=== PATIENT | female | born 1995 | race African-American/Black ===

== ENCOUNTER 2016-03-29 10:24 | Emergency (ER) | payer SELFPAY ==
[~2016-03-29] VITALS: Ht 167.6 cm; Wt 67.1 kg
[~2016-03-29 10:24] MED LIST: CIPROFLOXACIN500 M2 ORAL; COLACE100 MG ORAL; IBUPROFEN800 MG ORAL; MIRALAX17 G2 ORAL; NKM; PHENAZOPYRIDIN200 MG ORAL
[2016-03-29 10:32] VITALS: BP 101/73
[2016-03-29 10:42] VITALS: BP 101/73
[2016-03-29] MEDS ORDERED: IBUPROFEN600 MG ORAL (10:45)
[2016-03-29] MEDS ORDERED: AUGMENTIN 875-1 EAC1 ORAL (10:45)
--- NOTE | 2016-03-29 10:51 | Emergency Room Report ---
History of Present Illness General Chief Complaint: Sore Throat Source: Patient Present Illness HPI Patient presents with complaints of sore throat Pain with swallowing Ongoing for the past 3-4 days Denies any fevers or chills denies any posterior neck pain or photophobia denies any chest pain or shortness of breath denies any vomiting or diarrhea Patient also has a sore voices Denies any rash Pain is 5/10 localized to the throat when swallowing Allergies: Coded Allergies: No Known Allergies (Unverified , 12/05/13) Patient History Past Medical History: see triage record Pertinent Family History: none Last Menstrual Period: 03/09/16 Now: No Reviewed Nursing Documentation: PMH: Agreed, PSxH: Agreed Nursing Documentation-PMH Past Medical History: No Stated History Review of Systems All Other Systems: negative except mentioned in HPI Physical Exam Vital Signs Date Time Temp Pulse Resp B/P Pulse Ox O2 Delivery O2 Flow Rate FiO2 03/29/16 10:32 98.1 67 14 101/73 98 Room Air Sp02 EP Interpretation: reviewed, normal General Appearance: well appearing, no apparent distress Head: normocephalic, atraumatic Eyes: bilateral eye EOMI, bilateral eye PERRL ENT: hearing grossly normal, TMs + canals normal, uvula midline, pharyngeal erythema - Bilaterally Neck: full range of motion, supple, no meningismus, no bony tend Respiratory: lungs clear, normal breath sounds, no rhonchi, no respiratory distress, no retraction, no accessory muscle use Cardiovascular #1: normal peripheral pulses, regular rate, rhythm, no edema, no gallop, no JVD, no murmur Musculoskeletal: normal inspection Neurologic: oriented x3, responsive Psychiatric: mood/affect normal Skin: normal color, no rash, warm/dry, palpation normal Lymphatic: normal inspection, no adenopathy Medical Decision Making Diagnostic Impression: Primary Impression: pharyngitis ER Course Patient appears to have findings in line with pharyngitis Given the duration of symptoms likely bacterial Patient was placed on oral antibiotics and will have initial conservative outpatient trial Last Vital Signs Date Time Temp Pulse Resp B/P Pulse Ox O2 Delivery O2 Flow Rate FiO2 03/29/16 10:42 98.1 67 14 101/73 98 Room Air Status: unchanged Disposition: HOME, SELF-CARE Condition: Stable Scripts Ibuprofen* (MOTRIN*) 600 Mg Tablet 600 MG ORAL Q8H Y for For Pain, #20 TAB 0 Refills Prov: KENNEDY LOREDO D.O. 03/29/16 Amoxicillin/Potassium Clav 875-125* (AUGMENTIN 875-125 TABLET*) 1 Each Tablet 1 TAB ORAL TWICE A DAY, #14 TAB Prov: KENNEDY LOREDO D.O. 03/29/16 Patient Instructions: Pharyngitis, [id number] Additional Instructions: Patient is provided with the discharge instructions notified to follow up with primary doctor in the next 2-3 days otherwise return to the er with any worsening symptoms. KENNEDY LOREDO D.O. Mar 29, 2016 10:51
== END 2016-03-29 11:33 | disposition home or self-care (01) ==
LOC: EMR 10:56
DX: J02.9 Acute pharyngitis, unspecified (principal)
CPT/HCPCS: 99284